=== PATIENT | female | born 1975 | race Caucasian/White ===

== ENCOUNTER 2024-05-17 11:17 | Inpatient (IN) | payer OTHER ==
[~2024-05-17] VITALS: Ht 170.2 cm; Wt 85.7 kg
[~2024-05-17 11:17] MED LIST: HYDACE5 PO; IBUP600 PO; LORA2 PO
[2024-05-17] MEDS ORDERED: OLANZapine ODT 5 MG Tab MM ONE ×2 (12:25→13:35)
[2024-05-17] MEDS ORDERED: ALPRAZolam 0.5 MG Tab PO ONE (12:25)
[2024-05-17 12:28] LABS: BASOPHILS ABSOLUTE AUTO 0.06 K/mm3 (0.00-0.23); BASOPHILS PERCENT AUTO 1 % (0-2); EOSINOPHILS ABSOLUTE AUTO 0.04 K/mm3 (0.00-0.68); EOSINOPHILS PERCENT AUTO 0 % (0-6); IMMATURE GRAN ABSOLUTE AUTO 0.04 K/mm3 (0.00-0.10); IMMATURE GRAN PERCENT AUTO 0 % (0-1); LYMPHOCYTES ABSOLUTE AUTO 2.78 K/mm3 (0.84-5.20); LYMPHOCYTES PERCENT AUTO 26 % (21-46); MONOCYTES ABSOLUTE AUTO 0.79 K/mm3 (0.16-1.47); MONOCYTES PERCENT AUTO 7 % (4-13); Mean Corpuscular HGB Conc 34.9 g/dL (31.5-36.5); Mean Corpuscular Volume 92 fL (80-100); Mean Platelet Volume 10.8 fL (9.1-12.4); NEUTROPHILS ABSOLUTE AUTO 6.97 K/mm3 (1.96-9.15); NEUTROPHILS PERCENT AUTO 65 % (41-73); Platelet Count 308 K/mm3 (150-400); RDW Standard Deviation 40.1 fL (35.1-46.3); Red Blood Cell Count 4.69 M/mm3 (3.80-5.20); White Blood Cell Count 10.68 K/mm3 (4.00-11.30)
[2024-05-17 12:37] LABS: Ethanol (Alcohol), Blood, Med 84 mg/dL; Salicylate 4.1 mg/dL (2.8-20.0)
[2024-05-17 12:39] LABS: Acetaminophen, Random <2.0 ug/mL (10.0-30.0); Alanine Aminotransfer (ALT/SGP 21 U/L (12-78); Albumin/Globulin Ratio 1.2 (0.8-1.8); Alk Phos 75 U/L (50-136); Anion Gap 13 mmol/L (3-11); Aspartate Aminotrans (AST/SGOT 11 U/L (12-37); Bilirubin, Total 0.2 mg/dL (0.1-1.0); Blood Urea Nitrogen 13 mg/dL (8-24); Bun/Creatinine Ratio 20.2 (12.0-20.0); CO2, Blood 21 mmol/L (21-32); Calcium, Blood 9.6 mg/dL (8.5-10.1); Chloride, Blood 112 mmol/L (98-108); Creatinine, Blood 0.64 mg/dL (0.40-1.00); Globulin, Blood 3.3 g/dL (2.2-4.0); Glomerular Filtration Rate 107 (60-); Glucose, Blood 103 mg/dL (70-99); Potassium, Blood 4.2 mmol/L (3.5-5.5); Sodium, Blood 142 mmol/L (136-145); Total Protein, Blood 7.3 g/dL (6.4-8.2)
[2024-05-17] MEDS ORDERED: Nicotine 21 MG PATCH TOP ONE (12:40)
[2024-05-17] MEDS ORDERED: Nicotine Polacrilex 2 MG Gum PO PRN (12:40)
[2024-05-17 13:03] LABS: Source, Urine Clean Catch
[2024-05-17] MEDS ORDERED: Promethazine HCl 25 MG Tab PO ONE (13:10)
[2024-05-17 13:18] LABS: Appearance, Urine Clear (Clear); Bilirubin, Urine Neg (Neg); Blood, Urine Neg (Neg); Glucose Qualitative, Urine Neg (Neg); Ketones, Urine Neg (Neg); Leukocyte Esterase, Urine Neg (Neg); Nitrite, Urine Neg (Neg); Protein, Urine Neg (Neg); Specific Gravity, Urine 1.005 (1.003-1.022); Urobilinogen, Urine NORM (Normal)
[2024-05-17 13:37] LABS: Color, Urine Pale Yellow (P-Yellow)
[2024-05-17] MEDS ORDERED: ALPRAZOLAM0.5 M1 PO (13:59)
[2024-05-17] MEDS ORDERED: FLUO10 PO (14:02)
[2024-05-17] MEDS ORDERED: Phenergan25 M1 PO (14:02)
[2024-05-17 14:20] LABS: U Amphetamine Screen Not Detected; U Barbituate Screen Not Detected; U Benzodiazapine Screen DETECTED; U Buprenorphine Screen Not Detected; U Cannabinoids Screen Not Detected; U Cocaine Screen Not Detected; U Methadone Screen Not Detected; U Methamphetamine Screen Not Detected; U Opiates Screen Not Detected; U Oxycodone Screen Not Detected; U Phencyclidine Screen Not Detected
[2024-05-17] MEDS ORDERED: FLU VACC TS2024-25(6MOS UP)/PF 45 MCG/0.5 ML SYRINGE IM SCH (15:15)
[2024-05-17] MEDS ORDERED: ChlordiazePOXIDE 25 MG Cap PO PRN ×2 (15:15→20:05)
[2024-05-17] MEDS ORDERED: LORazepam 2 MG/ML 1ML Injection IV PRN ×2 (15:15→20:05)
[2024-05-17] MEDS ORDERED: Acetaminophen 325 MG TABLET PO PRN (15:15)
[2024-05-17] MEDS ORDERED: Haloperidol Lactate Inj. 5 MG/ML Injection IM PRN (15:20)
[2024-05-17] MEDS ORDERED: Ketorolac Tromethamine 30mg Vial IV PRN (15:30)
[2024-05-17] MEDS ORDERED: Thiamine HCl 250 MG in NS 100 ML IV SCH (16:00)
[2024-05-17 18:02] VITALS: BP 159/98
--- NOTE | 2024-05-17 19:19 | NUR ---
Admit note Pt alert, oriented x3; unsure of date. Pt reports anxiety asking for xanax, which she takes at home, medicated with ativan, pt reports that in the past ativan has caused her to "ramp up". Pt paranoid, states that she is scared of the police. Tremors noted. CIWA 15. Medicated per emar. Pt reporting headache, 10/16. Tele sinus 70-80's, bp elevated but stable. Spo2 >90% on ra, breathing even and unlabored; chronic cough, with brown sputum. Abd mild distended, soft, nontender, +bt t/o. Other vss. Report given to oncoming rn. Pt noted that mother sometimes is verbally mean, but feels safe returning, pt states she lives alone in a home. home.
[2024-05-17 20:11] VITALS: BP 126/88
[2024-05-17] MEDS ORDERED: Labetalol HCL 5 MG/ML 4ML Injection (Single Dose) IV PRN (20:25)
[2024-05-17] MEDS ORDERED: Gabapentin 300 MG Cap PO SCH (21:00)
[2024-05-17] MEDS ORDERED: NS 250 ML IV PRN (23:45)
[2024-05-18 00:39] VITALS: BP 131/92
--- NOTE | 2024-05-18 04:41 | NUR ---
SHIFT SUMMARY. SHIFT HAS BEEN UNREMARKABLE. PT HAS BEEN CONFUSED THROUGHOUT SHIFT BUT HAS BEEN RESTING COMFORTABLY IN BED THROUGHOUT ALMOST ENTIRE SHIFT. HAVE NOT HAD TO ADMINISTER ANY ORDERED MEDICATIONS FOR AGITATION OR ANXIETY. HAS BEEN PLEASANT AND COOPERATIVE WITH CARE THROUGHOUT SHIFT THUS FAR. 1:[address] THROUGHOUT SHIFT. NO PAIN REPORTED THROUGHOUT SHIFT. HAS BEEN RUNNING SINUS THROUGHOUT SHIFT. VITALS STABLE. BED LOCKED IN LOWEST POSITION. CALL LIGHT LEFT WITHIN REACH. CONTINUING TO MONITOR.
[2024-05-18 04:54] LABS: BASOPHILS ABSOLUTE AUTO 0.06 K/mm3 (0.00-0.23); BASOPHILS PERCENT AUTO 1 % (0-2); EOSINOPHILS PERCENT AUTO 2 % (0-6); Hematocrit 40.9 % (33.0-51.0); Hemoglobin 13.8 g/dL (11.5-16.0); IMMATURE GRAN ABSOLUTE AUTO 0.03 K/mm3 (0.00-0.10); IMMATURE GRAN PERCENT AUTO 0 % (0-1); LYMPHOCYTES ABSOLUTE AUTO 3.47 K/mm3 (0.84-5.20); LYMPHOCYTES PERCENT AUTO 40 % (21-46); MONOCYTES ABSOLUTE AUTO 0.68 K/mm3 (0.16-1.47); MONOCYTES PERCENT AUTO 8 % (4-13); Mean Corpuscular HGB 31.7 pg (26.0-34.0); Mean Corpuscular HGB Conc 33.7 g/dL (31.5-36.5); Mean Corpuscular Volume 94 fL (80-100); Mean Platelet Volume 11.2 fL (9.1-12.4); NEUTROPHILS ABSOLUTE AUTO 4.24 K/mm3 (1.96-9.15); NEUTROPHILS PERCENT AUTO 49 % (41-73); Platelet Count 265 K/mm3 (150-400); RDW Coefficient Variation 12.1 % (11.7-14.2); RDW Standard Deviation 41.9 fL (35.1-46.3); Red Blood Cell Count 4.36 M/mm3 (3.80-5.20); White Blood Cell Count 8.68 K/mm3 (4.00-11.30)
[2024-05-18 05:12] VITALS: BP 144/94
[2024-05-18 05:26] LABS: Albumin, Blood 3.2 g/dL (3.4-5.0); Albumin/Globulin Ratio 1.1 (0.8-1.8); Bilirubin, Total 0.2 mg/dL (0.1-1.0); Bun/Creatinine Ratio 25.6 (12.0-20.0); Creatinine, Blood 0.63 mg/dL (0.40-1.00); Globulin, Blood 2.8 g/dL (2.2-4.0); Potassium, Blood 3.9 mmol/L (3.5-5.5)
[2024-05-18 07:39] VITALS: BP 137/110
[2024-05-18] MEDS ORDERED: OLANZapine 5 MG Tab PO PRN ×2 (09:00→20:10)
[2024-05-18] MEDS ORDERED: Enoxaparin 40 MG/0.4 ML SYR SC SCH (09:00)
[2024-05-18] MEDS ORDERED: Nicotine 21 MG PATCH TOP SCH (09:00)
[2024-05-18] MEDS ORDERED: Famotidine 20 MG Tab PO SCH (09:00)
[2024-05-18] MEDS ORDERED: Folic Acid 1 MG TAB PO SCH (09:00)
[2024-05-18 12:29] VITALS: BP 127/87
[2024-05-18] MEDS ORDERED: QUEtiapine Fumarate 25 MG Tab PO ONE (14:55)
--- NOTE | 2024-05-18 15:19 | NUR ---
UPDATE [address] GARCIA AND ASSESSED. PT ENDORSED ANXIETY DURING MD'S ASSESSMENT. VERBAL ONE TIME DOSE OF SEROQUEL ORDERED AND GIVEN. PT ASKED MULTIPLE "IS HE SAYING THAT I'M LOONEY?" THIS RN EXPLAINED TO PT THAT SHE WAS HERE FOR TREATMENT AND THAT SHE IS IN THE RIGHT PLACE. PT ENDORSED FEAR OF POLICE AFTER HER AND INTEND TO HARM HER. THIS RN INFORMED PT THAT SHE IS IN THE PROPER PLACE FOR TREATMENT, PT REDIRECTABLE AT THIS TIME.
[2024-05-18] MEDS ORDERED: OLANZapine 10 MG Vial IM PRN (15:25)
[2024-05-18] MEDS ORDERED: QUEtiapine Fumarate 25 MG Tab PO PRN (15:25)
[2024-05-18 16:25] VITALS: BP 145/103
--- NOTE | 2024-05-18 18:28 | NUR ---
SHIFT SUMMARY PT A/OX3-4, CONFUSED AT TIMES AND VERY ANXIOUS. PT ABLE TO EXPRESS NEEDS AND CALLED APPROPIATE. VSS THROUGHOUT SHIFT WITH O2 SATS IN THE 90'S ON RA. PT ENDORSED PAIN OF HER JAW AND NECK WHEN PT WAS EXPERIENCING SEVERE ANXIETY. NO REPORT OF CHEST PAIN/PRESSURE THROUGHOUT SHIFT. NO REPORT OF SOB. PT SEEN BY PSYCH MD, PLAN TO MONITOR FOR ETOH WD AND TRANSFER TO U IF STABLE. PT ABLE TO GO FOR A WALK AROUND UNIT WITH STAFF PRESENT, TOLERATED WELL. PT INDEPENDENT IN NAHID AND BED,
[2024-05-18 20:12] VITALS: BP 140/69
[2024-05-18] MEDS ORDERED: Thiamine HCl 100 MG Tab PO SCH (21:00)
[2024-05-18] MEDS ORDERED: QUEtiapine Fumarate 25 MG Tab PO SCH (21:00)
[2024-05-19 04:32] VITALS: BP 120/65
--- NOTE | 2024-05-19 04:47 | NUR ---
SHIFT SUMMARY. SHIFT HAS BEEN UNREMARKABLE FOR THE MOST PART. PT HAS BEEN ABLE TO REST COMFORTABLY THROUGHOUT MOST OF SHIFT AFTER 2100 MEDICATION ADMINISTRATION. ADMINISTERED 2100 SEROQUEL, PT WAS ANXIOUS THAT THIS WOULD MAKE IT MORE DIFFICULT FOR HER TO GO TO SLEEP AND MAKE HER MORE UNEASY. SOME TIME AFTER ADMINISTRATION, PT WAS MORE ANXIOUS AND REQUESTING PO ZYPREXA W/ ATIVAN FOR MANAGEMENT THIS COMBINATION IS WHAT ALLOWED HER TO SLEEP ON DAY SHIFT. SPOKE WITH DR. GARCIA, ORDERED 5 MG PO ZYPREXA Q4P. ADMINISTERED THIS ALONG WITH 1 MG IV ATIVAN AND PT HAS BEEN ABLE TO REST COMFORTABLY THROUGHOUT MOST OF SHIFT SINCE. REFUSED 0000 VITALS BUT 1999 AND 399 VITALS HAVE BEEN UNREMARKABLE. CONTINUES TO MAINTAIN ADEQUATE SATURATION ON ROOM AIR. CONTINUES TO RUN SINUS ON TELE. PT IS MOSTLY ORIENTED BUT HAS SOME CLEAR FLIGHT OF IDEAS AT TIMES AND IS VERY QUICK TO BECOME ANXIOUS AND WORK HERSELF UP ABOUT DIFFERENT FEARS. ALTHOUGH THIS HAS BEEN MOSTLY MITIGATED WITH MANAGEMENT VIA EMAR. BED LOCKED IN LOWEST POSITION. 1:[address] CONTINUING TO MONITOR.
[2024-05-19] MEDS ORDERED: Polyethylene Glycol 3350 17 gm PO ONE (05:10)
[2024-05-19 07:55] VITALS: BP 137/92
[2024-05-19 11:35] VITALS: BP 134/99
[2024-05-19] MEDS ORDERED: ACET325 PO (12:57)
[2024-05-19] MEDS ORDERED: FAMO20 PO (12:57)
[2024-05-19] MEDS ORDERED: FOLI1 PO (12:57)
[2024-05-19] MEDS ORDERED: NICO2 PO (12:58)
[2024-05-19] MEDS ORDERED: NICO21TP TOP (12:58)
[2024-05-19] MEDS ORDERED: GABA300 PO (12:58)
[2024-05-19] MEDS ORDERED: B-1100 M1 PO (12:59)
[2024-05-19] MEDS ORDERED: OLAN5 PO (12:59)
--- NOTE | 2024-05-19 15:57 | NUR ---
DISCHARGE SUMMARY PT A&Ox4, CALLS APPROPRIATELY. VERY ANXIOUS AND PARANOID WITH FLIGHT OF IDEAS. PT STATES THAT SHE FEELS LIKE SHE WANTS TO RUN AWAY BUT KNOWS THAT SHE NEEDS TO STAY SO SHE CAN GET HELP. BP STABLE, SINUS 90's, DENIES CP/PRESSURE. SpO2> 92% RA, DENIES SOB. IND IN ROOM WITH 1:1 SITTER. C/O OF GENERALIZED PAIN, MANAGED PER EMAR. MANAGED ANXIETY PER EMAR. DISCHARGE INSTRUCTIONS GIVEN TO PT. REPORT GIVEN TO U RN. PT LEFT WITH [facility] STAFF MEMBER AND SECURITY VIA WHEELCHAIR AT APPROXIMATELY 1535.
== END 2024-05-19 15:40 | DRG 885 ==
LOC: ER 11:17 → PCU 11:18
PROVIDERS: Physician Assistant; ADMIT Internal Medicine
DX: F32.3 Major depressive disorder, single episode, severe with psychotic features (principal); G93.41 Metabolic encephalopathy; R45.851 Suicidal ideations; F43.12 Post-traumatic stress disorder, chronic; F41.9 Anxiety disorder, unspecified; Z79.899 Other long term (current) drug therapy; E66.9 Obesity, unspecified; F17.210 Nicotine dependence, cigarettes, uncomplicated; Z90.710 Acquired absence of both cervix and uterus; M19.072 Primary osteoarthritis, left ankle and foot; M19.071 Primary osteoarthritis, right ankle and foot; F12.10 Cannabis abuse, uncomplicated; K21.9 Gastro-esophageal reflux disease without esophagitis; F10.20 Alcohol dependence, uncomplicated
CPT/HCPCS: 36415; 70450; 80053; 80320; 81003; 81025; 85025; 93005; 93010; 94760; 96365; 96372; 96372-59; 96375; 96376; 99285-25; A9270; G0378; G0480; J1630; J1650; J2060; J3411; J7050

== ENCOUNTER 2024-05-19 13:31 | Inpatient (IN) | payer OTHER ==
[~2024-05-19 13:31] MED LIST changes: +ACET325 PO; +ALPRAZOLAM0.5 M1 PO; +B-1100 M1 PO; +FAMO20 PO; +FLUO10 PO; +FOLI1 PO; +GABA300 PO; +NICO2 PO; +NICO21TP TOP; +OLAN5 PO; +Phenergan25 M1 PO
[2024-05-19] MEDS ORDERED: Nicotine Polacrilex 2 MG Gum PO PRN (17:20)
[2024-05-19] MEDS ORDERED: HydrOXYzine Pamoate 25 MG Cap PO ONE (17:35)
--- NOTE | 2024-05-19 17:59 | NUR ---
ADMIT NOTE Pt admitted to [facility] at 1543 from U for mood dissorder. Pt is very anxious, labile in affect. Pt denies SI and HI. Pt displays paranoid thoughts that "the founder and chief executive officer are out to get me" and is endorsing AH. During the admission process she continually talked about not wanting to be here and that because of this admission she will not be able to see her PCP because "he'll be able to read everything your typing." U provider ordered hydroxyizine 25mg TID, mirtazapine 15mg HS, and trazodone 200mg HS. Provider also ordered a now-dose of hydroxyzine, which pt took without issue. Staff continue to monitor for safety.
[2024-05-19] MEDS ORDERED: TraZODone HCl 50 MG Tab PO SCH (21:00)
[2024-05-19] MEDS ORDERED: HydrOXYzine Pamoate 25 MG Cap PO SCH (21:00)
[2024-05-19] MEDS ORDERED: Mirtazapine 15 MG Tab PO SCH (21:00)
[2024-05-19 21:23] VITALS: BP 135/95
[2024-05-20] MEDS ORDERED: Ibuprofen 600 MG Tab PO PRN (05:30)
[2024-05-20] MEDS ORDERED: Acetaminophen 325 MG TABLET PO PRN (05:30)
--- NOTE | 2024-05-20 05:45 | NUR ---
RANDY IN ROOM RESTING AT START OF SHIFT. A&O X 4, APPEARING UNKEMPT WITH FLAT, DEPRESSED AFFECT. DENIED SI/HI/AVTH AND PAIN. ENDORSED FEELING ANXIOUS /10. HS MEDICATIONS GIVEN ORDERED. PT CALM AND COOPERATIVE WITH ALL CARE. NO PARANOID STATEMENTS OBSERVED BY STAFF THIS SHIFT. PT RETIRED TO BED AND SLEPT SOUNDLY UNTIL AROUND 3 AM. PT AWOKE REQUESTING SNACK, COFFEE AND NICOTINE GUM. PT REQUESTED TO WATCH TELEVISION IN DAY ROOM AND WAS UP AND DOWN THE REST OF THE NIGHT. PT BEGAN TO PERSEVERATE ON WHEN SHE WOULD BE ABLE TO SPEAK TO THE MD AND WANTING TO LEAVE. PT ALSO REQUESTED TO USE THE PHONE AND WAS OVERHEARD BY STAFF TELLING INDIVIDUAL "THEY ARE KEEPING ME HOSTAGE AND I SHOULD HAVE NEVER CAME HERE." EDUCATED PT MD WOULD BE ON THIS MORNING AND WOULD SEE HER AND EDUCATED ON VOLUNTARY STATUS ALONG WITH PT RIGHTS. PT VERBALIZED UNDERSTANDING. PT ALSO COMPLAINED OF FEELING ANXIOUS AND HAVING A HEADACHE. MD CONTACTED AT 0522 AND N.O RECEIVED FOR TYLENOL/IBUPROFEN (SEE EMAR). PT GIVEN 0900 DOSE OF VISTARIL FOR ANXIETY. PT TOOK MEDICATIONS WITHOUT ISSUE. DURING THIS TIME PT NOTED TO BE LABILE WITH FLIGHTS OF IDEAS AND PRESSURED, RAPID SPEECH. SAFETY MEASURES MAINTAINED VIA Q15 MINUTE CHECKS.
--- NOTE | 2024-05-20 06:03 | NUR ---
PATIENT VERY ANXIOUS AND AGITATED THIS AM. SHE DOES CALL HER DAUGHTER WHO LIVES OUT OF STATE TO TELL HER SHE "IS BEING HELD AGAINST HER WILL". PATIENT WAS GIVEN PRN MEDICATIONS TO ASSIST WITH ANXIETY/AGITATION. STAFF IS ABLE TO KEEP RANDY CALM AND ENCOURAGED A HOT SHOWER, HOT TEA WITH ACTIVE LISTENING. DAUGHTER IS ABLE TO PROVIDE FURTHER HISTORY ON RANDY'S CURRENT AND PAST BEHAVIORS AND ADDICTION. ACORDING TO DAUGHTER, RANDY HAS BEEN A LONG TIME USER/ADUSER OF BENZODIAZEPINES, OPIODS AND ALCOHOL. SHE HAS HAD SEVERAL ARRESTS DUE TO INTOXICATION. CURRENTLY, DAUGHTER STATES THAT RANDY HAS WORSENED IN HER ADDICTIONS AND MENTAL HEALTH. SHE IS DEMONSTRATING: PARANOIA, AH AND VH. DAUGHTER STATES "I HAVE NEVER SEEN HER THIS BAD". DAUGHTER ALSO STATES "MY MOTHER IS A MANIPULATOR AND A LIFE LONG HIBITUAL LIAR". DAUGHTER TELLS ME RANDY'S FAMILY IS VERY SUPPORTIVE OF HER BEING HERE AND GETTING THE HELP SHE NEEDS. (RANDY GIVES VERBAL CONSENT TO DISCUSS HER CASE WITH DAUGHTER AND MOTHER)
[2024-05-20] MEDS ORDERED: HyDROXyzine HCl 25 MG Tab PO PRN (08:05)
[2024-05-20 08:06] VITALS: BP 113/97
[2024-05-20] MEDS ORDERED: Nicotine 21 MG PATCH TOP SCH (09:00)
[2024-05-20] MEDS ORDERED: ClonazePAM 1 MG Tab PO ONE (13:50)
--- NOTE | 2024-05-20 14:20 | NUR ---
PROVIDER HAS BEEN TO SEE PT. NEW ORDERS OBTAINED FOR MEDICATION AND CIWA. PT MEDICATED PER ORDERS AND CIWA RESULTS COMMUNICATED WITH PROVIDER.
--- NOTE | 2024-05-20 16:31 | NUR ---
PT HAS HAD A VISITOR, STATES THAT THE VISIT WENT WELL. GENNYWA REPEATED AND CHARTED. PT IN WITH PROVIDER AT THIS TIME.
--- NOTE | 2024-05-20 18:13 | NUR ---
SHIFT SUMMARY: PT ALERT, ORIENTED AND COOPERATIVE. DENIES SI, HI AND AVH. PT VISIBLE ON THE UNIT AND PARTICIPATED IN DEPT MILIEU. PT MEDICATED WITH PRNS PER EMR. PT HAS TALKED TO THE PROVIDER AND POSSIBLE PLAN FOR DISCHARGE ON 05/23.
[2024-05-20 19:42] VITALS: BP 133/70
[2024-05-20] MEDS ORDERED: TraZODone HCl 100 MG Tab PO SCH (21:00)
[2024-05-20 22:03] VITALS: BP 133/70
--- NOTE | 2024-05-21 00:19 | NUR ---
CIWA ZERO AT 2400. PATIENT SLEEPING
--- NOTE | 2024-05-21 04:00 | NUR ---
Patient sleeping during 0 CIWA assessment
--- NOTE | 2024-05-21 04:05 | NUR ---
Patient states no SI, HI or any AVH during assessment. Initial CIWA score of 6 at time of HS medications. After HS medications, patient went into bed and slept through the night. Up until this point, patient has slept 7.5 hours. will continue close monitoring
[2024-05-21 07:53] VITALS: BP 123/69
[2024-05-21] MEDS ORDERED: ClonazePAM 0.5 MG Tab PO ONE ×2 (09:00→12:50)
[2024-05-21] MEDS ORDERED: Gabapentin 300 MG Cap PO SCH (09:00)
--- NOTE | 2024-05-21 11:40 | NUR ---
PT C/O INCREASED ANXIETY. MEDICATED WITH PRN PER EMAR. PT CALM AND SITTING IN OUTDOOR AREA WITH STAFF.
--- NOTE | 2024-05-21 17:32 | NUR ---
SHIFT SUMMARY: PT ALERT, ORIENTED AND COOPERATIVE WITH CARE. COMPLIANT WITH MEDICATIONS. MEDICATED WITH PRN FOR ANXIETY. PT HAS BEEN VISIBLE ON THE UNIT AND IN DEPT MILIEU. DENIED SI, HI OR AVH.
[2024-05-21 20:27] VITALS: BP 121/81
--- NOTE | 2024-05-22 01:57 | NUR ---
Patient appears to be sleeping. Respirations audible and even. will continiue close monitoring
--- NOTE | 2024-05-22 04:21 | NUR ---
Patient still with complaints of extreme anxiety. Grateful for medication combination at . No SI, HI or AVH noted on assessment. Patient did ask what were the results of her tox screen upon admission. She stated her mother thought someone had put methamphetamine in her drink prior to her coming to the hospital. Sleep time up to the time of this note approximately 7 hours. will continue close monitoring
--- NOTE | 2024-05-22 06:09 | NUR ---
patient very worried about including her PCP in her discharge notes from [facility]. Encouraged her to speak with SW or Doctor about the importance of keeping her primary physician informed of her overall health
[2024-05-22 08:09] VITALS: BP 112/90
[2024-05-22] MEDS ORDERED: ClonazePAM 1 MG Tab PO SCH (09:00)
[2024-05-22] MEDS ORDERED: ARIPiprazole 5 MG Tab PO SCH (09:00)
--- NOTE | 2024-05-22 18:20 | NUR ---
SHIFT SUMMARY PT A/O X4; PLEASANT AND COOPERATIVE WITH CARE. SHE DENIES SI, HI, OR ANY HALLUCINATIONS. SHE REPORTS ANXIETY AND STATES THAT SHE HAS A HARD TIME WITH CHANGE. PT WORRIED ABOUT SEEING AN INCREASE IN CARS OUTSIDE THIS AM AND AN INFLUX OF PEOPLE. EXPLAINED TO PT THAT IT IS WEDNESDAY, SO MORE PEOPLE ARE WORKING AT THE HOSPITAL. PT VERBALIZED UNDERSTANDING BUT REPORTED THAT SHE IS STILL BOTHERED BY CHANGE. GIVEN PRN VISTARIL X1 THIS SHIFT WITH GOOD EFFECT. ALSO GAVE PRN IBUPROFEN FOR FOOT PAIN.
[2024-05-22 23:25] VITALS: BP 134/65
[2024-05-23 08:03] VITALS: BP 133/93
[2024-05-23] MEDS ORDERED: ABILIFY MYCITE5 M2 PO (12:25)
[2024-05-23] MEDS ORDERED: CLON1 PO (12:27)
[2024-05-23] MEDS ORDERED: HYDPAM25 PO (12:34)
[2024-05-23] MEDS ORDERED: MIRT15 PO (12:35)
[2024-05-23] MEDS ORDERED: Trazodone HCl300 MG PO (12:36)
--- NOTE | 2024-05-23 16:11 | NUR ---
SHIFT SUMMARY PT A/O X4; PLEASANT AND COOPERATIVE WITH CARE. PT IS HIGHLY ANXIOUS TO LEAVE BUT HAS BEEN WORKING ON COPING SKILLS. PT EDUCATED ON NOT TAKING XANAX WITH NEW MEDICATIONS. PT WORRIED ABOUT MEDICATIONS. GIVEN PRN VISTARIL FOR ANXIETY. DENIES SI, HI, OR ANY HALLUCINATIONS. PT WENT HOME WITH FRIEND AND PAPER PRESCRIPTION GIVEN TO PT TO DROP OFF AT PHARMACY.
== END 2024-05-23 16:08 | disposition home or self-care (01) | DRG 897 ==
LOC: BHU 13:31
PROVIDERS: ADMIT Psychiatry & Neurology Psychiatry
DX: F10.24 Alcohol dependence with alcohol-induced mood disorder (principal); F10.239 Alcohol dependence with withdrawal, unspecified; F41.9 Anxiety disorder, unspecified; F32.A Depression, unspecified; Z60.2 Problems related to living alone
CPT/HCPCS: A9270; Q0177

== ENCOUNTER 2024-11-14 08:11 | Day surgery (SDC) | payer OTHER ==
[~2024-11-14] VITALS: Ht 157.5 cm; Wt 90.6 kg
[~2024-11-14 08:11] MED LIST changes: +ABILIFY MYCITE5 M2 PO; +CLON1 PO; +DIAZ2 PO; +ESOM20 PO; +GABAPENTIN; +HYDPAM25 PO; +Lactated Ringer's 1,000 ML IV ONE; +MIRT15 PO; +NICORETTE4 MG PO; +PROMETHAZINE12.5 M1; +Trazodone HCl300 MG PO; +propofoL 50 ML IV ONE
[2024-11-14] MEDS ORDERED: Lactated Ringer's 1,000 ML IV ONE (09:28)
[2024-11-14] MEDS ORDERED: Midazolam HCl 1MG / ML 2ML Vial ONE ×2 (09:31→09:53)
[2024-11-14] MEDS ORDERED: propofoL 50 ML IV ONE (10:56)
[2024-11-14 11:20] VITALS: BP 135/91
== END 2024-11-14 11:24 | disposition home or self-care (01) ==
LOC: ORSCSDS 08:11
PROVIDERS: Internal Medicine Gastroenterology
PROC: 0DJ08ZZ Inspection of Upper Intestinal Tract, Via Natural or Artificial Opening Endoscopic (ICD-10-PCS; principal; 2024-11-14 09:30)
PROC: 0DBM8ZX Excision of Descending Colon, Via Natural or Artificial Opening Endoscopic, Diagnostic (ICD-10-PCS; principal; 2024-11-14 09:30)
DX: K92.1 Melena (principal); D12.4 Benign neoplasm of descending colon; K57.30 Diverticulosis of large intestine without perforation or abscess without bleeding; Z87.11 Personal history of peptic ulcer disease; K21.9 Gastro-esophageal reflux disease without esophagitis; R10.84 Generalized abdominal pain; F41.9 Anxiety disorder, unspecified; Z79.899 Other long term (current) drug therapy
CPT/HCPCS: 88305; J2250; J2704; J7120